=== PATIENT | male | born 1950 | race Caucasian/White ===

== ENCOUNTER 2016-07-05 15:43 | Emergency (ER) | payer MEDICARE, OTHER | END 2016-07-05 20:45 | disposition home or self-care (01) | LOC: ER 15:43 | DX: M62.838 Other muscle spasm (principal); I25.10 Atherosclerotic heart disease of native coronary artery without angina pectoris; I50.9 Heart failure, unspecified; E11.9 Type 2 diabetes mellitus without complications; Z79.82 Long term (current) use of aspirin; Z79.899 Other long term (current) drug therapy; Z79.84 Long term (current) use of oral hypoglycemic drugs ==